=== PATIENT | female | born 1975 | race Caucasian/White ===

== ENCOUNTER 2019-08-28 08:04 | Emergency (ER) | payer OTHER, SELFPAY ==
[2019-08-28 08:19] VITALS: BP 145/85; PULSE 81; RESP 16; TEMP 36.7; O2SAT 100
--- NOTE | 2019-08-28 08:20 | ED.GENADULT ---
HPI - General Adult General Chief complaint: Upper Respiratory Infection Stated complaint: cough head and chest cold Time Seen by Provider: 08/28/19 08:25 Source: patient and RN notes reviewed Mode of arrival: ambulatory Limitations: no limitations History of Present Illness HPI narrative: 44-year-old female presents with complains of upper respiratory infection symptoms, low-grade fever, sore throat, and dry cough for 7 days. Tylenol Sinus without relief. Symptoms increase with head congestion and chest tenderness with coughing episodes. Constant dry cough. Rhinorrhea and nasal congestion. Denies sore throat at this time. No high fevers, drooling, neck or throat swelling. No chest pain, wheezing, or shortness of breath. No exacerbation factors. Denies nausea, vomiting, and abdominal pain. Tolerating liquids well. Remains active. Pamela denies being , LMP 1 month ago and is irregular. Some parts of this dictation were generated by voice recognition software and may contain typographical and/or grammatical inaccuracies. Related Data Home Medications Medication Instructions Recorded Confirmed lisinopril-hydrochlorothiazide 1 tablet PO DAILY 08/28/19 08/28/19 naltrexone 4.5 mg PO DAILY 08/28/19 08/28/19 rabeprazole 20 mg PO DAILY 08/28/19 08/28/19 ropinirole 0.5 mg PO DAILY 08/28/19 08/28/19 Allergies Allergy/AdvReac Type Severity Reaction Status Date / Time tramadol AdvReac Unknown Nausea and Verified 08/28/19 08:27 Vomiting Review of Systems Review of Systems: Narrative: CONSTITUTIONAL: Complains of low-grade fever. Denies chills, sweats. EYES: Denies visual changes, redness, discharge. ENT: Complains of rhinorrhea, congestion. Denies sore throat, otalgia. CARDIOVASCULAR: Denies chest pain, palpitations, edema. RESPIRATORY: Denies dyspnea, wheezing. Complains of dry cough. GASTROINTESTINAL: Denies abdominal pain, nausea, vomiting, diarrhea. GENITOURINARY: Denies dysuria, hematuria, abnormal discharge. SKIN: Denies rash or itching. MUSCULOSKELETAL: Denies acute back pain, joint pain, or myalgia. Complains of diffuse chest wall tenderness. NEUROLOGIC: Denies numbness or focal weakness. PSYCHIATRIC: Denies anxiety or depression. All systems reviewed & are unremarkable except as noted in HPI and below. [facility] Past Medical History Medical History (Updated 08/28/19 @ 09:22 by MANDO Cintron) Acid reflux Carpal tunnel syndrome, bilateral Hypertension Lyme disease Plantar fasciitis of left foot Restless leg syndrome Surgical History Surgical History (Updated 08/28/19 @ 09:20 by MANDO Cintron) History of carpal tunnel surgery Bilateral History of toe surgery Right great toe Family History Family History Mother Hypertension Family history of elevated blood lipids Family history of coronary artery disease Patient's mother is Family history of lung cancer, Onset Age: 62 Father Hypertension Family history of elevated blood lipids Cerebrovascular accident, Onset Age: 55 Patient's father is Family history of alcoholism Sibling Hypertension Grandparent Diabetes mellitus Social History Social History Smoking status: Never smoker Second hand tobacco smoke exposure: No Smoking end date: 07/20/89 Alcohol intake: never Comments At time of signature, agree with nurse past medical, surgical, social, and family history. There is no relevant family history pertinent to the presenting complaint. Exam Narrative: Exam Narrative: GENERAL: This is a well-nourished, well-developed patient, in no apparent distress. Talks in full sentences and ambulates with steady gait without dyspnea. HEAD: normocephalic, atraumatic. EYES: PERRL. Sclera clear/white. Vision is grossly intact. EARS: E
== END 2019-08-28 08:38 | disposition home or self-care (01) ==
PROVIDERS: Emergency Provider Nurse Practitioner Family; PCP Family Medicine
DX: J40 Bronchitis, not specified as acute or chronic (principal); M94.0 Chondrocostal junction syndrome [Tietze]
CPT/HCPCS: 99213; G0463

== ENCOUNTER 2021-04-06 15:27 | Emergency (ER) | payer OTHER, SELFPAY ==
--- NOTE | ~2021-04-06 | XR_ITS ---
XR chest 2V DATE: 04/06/2021 15:53 INDICATION: Cough. Tachycardia. Post Covid. TECHNIQUE: 2 views COMPARISON: 10/23/2015 chest FINDINGS: Normal heart size. No hilar or mediastinal enlargement. No pulmonary infiltrate or consolidation, pleural effusion or pulmonary vascular congestion or pneumo thorax. IMPRESSION: No active cardiopulmonary disease Reviewed, dictated and finalized at location A.
[2021-04-06 15:32] VITALS: BP 158/85; PULSE 120; RESP 20; TEMP 37.1; O2SAT 100
--- NOTE | 2021-04-06 15:37 | ED.GENADULT ---
HPI - General Adult General Chief complaint: Upper Respiratory Infection Stated complaint: fever,rapid heart beat Time Seen by Provider: 04/06/21 15:37 Source: patient Mode of arrival: ambulatory Limitations: no limitations History of Present Illness HPI narrative: 46-year-old female patient presents to the [facility] with complaints of heart palpitations, shortness of breath. Patient was diagnosed with Covid after starting to have symptoms on March 25. Patient states she was not vaccinated. Patient states she did see her homeopathic doctor which did prescribe her a Medrol Dosepak and ivermectin for her symptoms. Patient states she is finished the Medrol Dosepak is still on the ivermectin as well as supplements and vitamins. Patient states she thought she was getting better however she last had a fever on April 03. Patient states she was cleared by the health department to go back to work on Thursday but states she still noticing that she is having some congestion, cough and now has noticed increase in her heart rate anywhere from the 120s to 130s. Patient states she notices that she is got some shortness of breath on exertion. Related Data Home Medications Medication Instructions Recorded Confirmed lisinopril-hydrochlorothiazide 1 tablet PO DAILY 08/28/19 04/30/20 rabeprazole 20 mg tablet,delayed 20 mg PO DAILY 04/27/20 04/30/20 release ascorbic acid (vitamin C) 1 g PO DAILY 04/06/21 04/06/21 cyanocobalamin (vitamin B-12) IM MONTHLY 04/06/21 ropinirole 0.5 mg PO DAILY 04/06/21 04/06/21 Allergies Allergy/AdvReac Type Severity Reaction Status Date / Time Sulfa (Sulfonamide AdvReac Mild Nausea and Verified 04/06/21 15:51 Antibiotics) Vomiting tramadol AdvReac Unknown Nausea and Verified 04/06/21 15:50 Vomiting Review of Systems Review of Systems: CONSTITUTIONAL: Denies fever, chills, or sweats. EYES: Denies visual changes, redness, or discharge. ENT: Denies rhinorrhea, positive congestion, denies sore throat, or otalgia. CARDIOVASCULAR: Denies chest pain, positive palpitations, denies edema. RESPIRATORY: Positive cough with dyspnea. GASTROINTESTINAL: Denies abdominal pain, nausea, vomiting, or diarrhea. GENITOURINARY: Denies dysuria or hematuria. SKIN: Denies rash or itching. MUSCULOSKELETAL: Denies back pain, joint pain, or myalgia. NEUROLOGIC: Denies headache, numbness, or weakness. PSYCHIATRIC: Denies anxiety or depression. [facility] Past Medical History Medical History (Updated 04/06/21 @ 16:39 by MANDO Castro) Acid reflux Carpal tunnel syndrome, bilateral COVID-19 virus infection Hypertension Lyme disease Plantar fasciitis of left foot Restless leg syndrome Surgical History Surgical History History of carpal tunnel surgery Bilateral History of toe surgery Right great toe Family History Family History Mother Hypertension Family history of elevated blood lipids Family history of coronary artery disease Patient's mother is Family history of lung cancer, Onset Age: 62 Father Hypertension Family history of elevated blood lipids Cerebrovascular accident, Onset Age: 55 Patient's father is Family history of alcoholism Sibling Hypertension Grandparent Diabetes mellitus Social History Social History Smoking status: Former smoker (quit 30 years ago, smoked for 1 year in teens) Second hand tobacco smoke exposure: No Smoking end date: 07/20/89 Alcohol intake: never Substance use: never Substance use type: does not use Additional occupation/education comments: post office Gender identity (if verbalized by the patient): Female Sexual Orientation (if Verbalized by the Patient): Straight or Heterosexual Spiritual care concerns: No Agree to bl
--- NOTE | 2021-04-06 16:02 | ECG_ITS ---
Measurements Intervals [place] Rate: 109 P: 62 IA: 140 QRS: 64 QRSD: 88 T: 40 QT: 311 QTc: 419 Interpretive Statements SINUS TACHYCARDIA ABNORMAL ECG Electronically Signed On 04-07-2021 7:01:24 CDT by Colten Caraballo D.O.
== END 2021-04-06 16:35 | disposition short-term general hospital (02) ==
PROVIDERS: Emergency Provider Nurse Practitioner Family; PCP Family Medicine
DX: R00.2 Palpitations (principal); R06.02 Shortness of breath; I10 Essential (primary) hypertension; Z87.891 Personal history of nicotine dependence
CPT/HCPCS: 71046; 93005; 99213; G0463

== ENCOUNTER 2021-08-29 08:22 | Emergency (ER) | payer OTHER, SELFPAY ==
--- NOTE | 2021-08-29 08:27 | ED.SKABFB ---
HPI - Skin/Abscess/Foreign Bdy General Chief complaint: Skin/Abscess/Foreign Body Stated complaint: red behind right knee Time Seen by Provider: 08/29/21 08:33 Source: patient and RN notes reviewed History of Present Illness HPI narrative: Patient is a 46-year-old female who presents the urgent care with complaints of pain behind her right knee. Patient states that she has been wearing high boots to work and is unable to put the seat back in her truck and believes that she may have pulled something in her leg. Patient noticed a couple days ago that she now has a rash on her upper leg. Denies of any history of blood clot, shortness of breath or chest pain. Patient is not taking anything [id number] for her pain. No other acute complaints. No acute distress noted. Patient read the plan of care. Some parts of this dictation were generated by voice recognition software and may contain typographical and/or grammatical inaccuracies. Related Data Home Medications Medication Instructions Recorded Confirmed lisinopril-hydrochlorothiazide 1 tablet PO DAILY 08/28/19 08/29/21 rabeprazole 20 mg tablet,delayed 20 mg PO DAILY 04/27/20 08/29/21 release ascorbic acid (vitamin C) 1 g PO DAILY 04/06/21 08/29/21 cyanocobalamin (vitamin B-12) 1,000 mcg IM MONTHLY 04/06/21 08/29/21 prednisone 20 mg PO DAILY 08/29/21 08/29/21 Allergies Allergy/AdvReac Type Severity Reaction Status Date / Time Sulfa (Sulfonamide AdvReac Mild Nausea and Verified 08/29/21 08:33 Antibiotics) Vomiting tramadol AdvReac Unknown Nausea and Verified 08/29/21 08:33 Vomiting Review of Systems Review of Systems: CONSTITUTIONAL: Denies fever, chills, or sweats. EYES: Denies visual changes, redness, or discharge. ENT: Denies rhinorrhea, congestion, sore throat, or otalgia. CARDIOVASCULAR: Denies chest pain, palpitations, or edema. RESPIRATORY: Denies cough or dyspnea. GASTROINTESTINAL: Denies abdominal pain, nausea, vomiting, or diarrhea. GENITOURINARY: Denies dysuria or hematuria. SKIN: Reports of a rash behind the right knee MUSCULOSKELETAL: Reports of pain behind the right knee NEUROLOGIC: Denies headache, numbness, or weakness. All other systems reviewed are negative, except as documented in HPI. [facility] Past Medical History Medical History (Updated 08/29/21 @ 08:44 by MANDO Starks) Acid reflux Carpal tunnel syndrome, bilateral COVID-19 virus infection Hypertension Lyme disease Plantar fasciitis of left foot Restless leg syndrome Surgical History Surgical History History of carpal tunnel surgery Bilateral History of toe surgery Right great toe Family History Family History Mother Hypertension Family history of elevated blood lipids Family history of coronary artery disease Patient's mother is Family history of lung cancer, Onset Age: 62 Father Hypertension Family history of elevated blood lipids Cerebrovascular accident, Onset Age: 55 Patient's father is Family history of alcoholism Sibling Hypertension Grandparent Diabetes mellitus Social History Social History Smoking status: Former smoker (quit 30 years ago, smoked for 1 year in teens) Second hand tobacco smoke exposure: No Smoking end date: 07/20/89 Alcohol intake: never Substance use: never Substance use type: does not use Additional occupation/education comments: post office Gender identity (if verbalized by the patient): Female Sexual Orientation (if Verbalized by the Patient): Straight or Heterosexual Spiritual care concerns: No Agree to blood products: Yes Comments At the time of my signature, I reviewed and agree with the nursing past medical, surgical, social, and family history. There is no relevant fami
[2021-08-29 08:28] VITALS: BP 154/80; PULSE 84; RESP 20; TEMP 36.3; O2SAT 100
== END 2021-08-29 08:50 | disposition home or self-care (01) ==
PROVIDERS: Emergency Provider Nurse Practitioner Family; PCP Family Medicine
DX: T14.8XXA Other injury of unspecified body region, initial encounter (principal); X58.XXXA Exposure to other specified factors, initial encounter; B36.9 Superficial mycosis, unspecified; Z87.891 Personal history of nicotine dependence; K21.9 Gastro-esophageal reflux disease without esophagitis; I10 Essential (primary) hypertension; G25.81 Restless legs syndrome; Z86.16 Personal history of COVID-19
CPT/HCPCS: 99213; G0463

== ENCOUNTER 2022-06-04 12:28 | Emergency (ER) | payer OTHER, SELFPAY ==
--- NOTE | ~2022-06-04 | XR_ITS ---
EXAMINATION: XR knee RT min 4V DATE: 06/04/2022 13:14 INDICATION: Right knee pain. TECHNIQUE: 4 views of right knee were obtained. COMPARISON: None. FINDINGS: Bone alignment is normal. No fracture. There is mild tricompartmental osteoarthritis. There is a small knee joint effusion with loose bodies in the suprapatellar bursa. IMPRESSION: 1. Mild right knee osteoarthritis. 2. Small right knee joint effusion with loose bodies. Reviewed, dictated and finalized at location A. [employer] DEVELOPMENT TECHNICIAN
--- NOTE | ~2022-06-04 | XR_ITS ---
EXAMINATION: XR forearm RT 2V DATE: 06/04/2022 13:14 INDICATION: Right forearm pain. Fall. TECHNIQUE: 2 views of right forearm were obtained. COMPARISON: None. FINDINGS: Bone alignment is normal. No fracture. Joint spaces are normal. No elbow joint effusion. IMPRESSION: 1. Normal right forearm. Reviewed, dictated and finalized at location A. PAINTER IMPRESSION: 1. Normal right forearm.
[2022-06-04 12:38] VITALS: BP 144/93; PULSE 81; RESP 22; TEMP 36.4; O2SAT 100
--- NOTE | 2022-06-04 13:17 | ED.FALL ---
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 Patient reports she walked into a building which has 2 separate sliding glass doors and wind knocked something off of glass doors onto floor and she slipped on it landing on her right knee and outstretched her right hand and forearm to break her fall.Patient reports pain to her anterior right knee and to right wrist area with some generalized soreness also stated to her lower back, right hip, right shoulder, upper chest, right forearm and hand she rates as 2/10. Patient reports that she would like to go back to work today and also get a muscle relaxer so she can work the weekend. MD complaint: fall Onset (ago): hour(s) (2 hours prior to arrival) Fall from: standing Place fall occurred: other (while delivering mail at assistive living residence) Loss of consciousness: none Symptoms prior to fall: none Severity scale (1-10): 5 (right knee, 2 right wrist and forarm) Associated symptoms (after fall): other (pain right knee,right wrist and forearm) Related Data Home Medications Medication Instructions Recorded Confirmed lisinopril 20 1 tablet PO DAILY 08/28/19 06/04/22 mg-hydrochlorothiazide 25 mg tablet rabeprazole 20 mg tablet,delayed 20 mg PO DAILY 04/27/20 06/04/22 release ascorbic acid (vitamin C) 1,000 mg 1 g PO DAILY 04/06/21 06/04/22 tablet cyanocobalamin (vitamin B-12) 1,000 mcg IM MONTHLY 04/06/21 06/04/22 1,000 mcg/mL injection solution prednisone 20 mg tablet 20 mg PO DAILY 08/29/21 06/04/22 golimumab 12.5 mg/mL intravenous See Rx Instructions .Route .COMPLEX 06/04/22 06/04/22 solution (Simponi ARIA) Allergies Allergy/AdvReac Type Severity Reaction Status Date / Time Sulfa (Sulfonamide AdvReac Mild Nausea and Verified 06/04/22 12:37 Antibiotics) Vomiting tramadol AdvReac Unknown Nausea and Verified 06/04/22 12:37 Vomiting Review of Systems Review of Systems: CONSTITUTIONAL: Denies fever, chills, or sweats. EYES: Denies visual changes, redness, or discharge. ENT: Denies rhinorrhea, congestion, sore throat, or otalgia. CARDIOVASCULAR: Denies chest pain, palpitations, or edema. RESPIRATORY: Denies cough or dyspnea. GASTROINTESTINAL: Denies abdominal pain, nausea, vomiting, or diarrhea. GENITOURINARY: Denies dysuria or hematuria. SKIN: Denies rash or itching. MUSCULOSKELETAL: Denies back pain, positive for pain to right knee joint,right wrist forearm or myalgia.some soreness to lower back, right hip, right shoulder, upper chest,right hand and forearm NEUROLOGIC: Denies headache, numbness, or weakness. PSYCHIATRIC: Denies anxiety or depression. All systems reviewed & are unremarkable except as noted in HPI and below PMFSH Past Medical History Medical History (Updated 06/09/22 @ 10:01 by Karley East NP) Acid reflux Carpal tunnel syndrome, bilateral COVID-19 virus infection Hypertension Lyme disease Plantar fasciitis of left foot Restless leg syndrome Rheumatoid arthritis Surgical History Surgical History History of carpal tunnel surgery Bilateral History of toe surgery Right great toe Family History Family History Mother Hypertension Family history of elevated blood lipids Family history of coronary artery disease Patient's mother is Family history of lung cancer, Onset Age: 62 Father Hypertension Family history of elevated blood lipids Cerebrovascular accident, Onset Age: 55 Patient's f
== END 2022-06-04 14:20 | disposition home or self-care (01) ==
PROVIDERS: Emergency Provider Registered Nurse; PCP Family Medicine
DX: M25.461 Effusion, right knee (principal); M23.41 Loose body in knee, right knee; K21.9 Gastro-esophageal reflux disease without esophagitis; I10 Essential (primary) hypertension; G25.81 Restless legs syndrome; Z86.16 Personal history of COVID-19; Z87.891 Personal history of nicotine dependence
CPT/HCPCS: 73090; 73564; 99214; G0463

== ENCOUNTER 2023-11-21 08:04 | Emergency (ER) | payer OTHER, SELFPAY ==
[2023-11-21 08:15] VITALS: BP 128/63; PULSE 103; RESP 16; TEMP 36.6; O2SAT 100
--- NOTE | 2023-11-21 08:15 | ED.URI ---
HPI - URI/Sore Throat General Chief Complaint: Upper Respiratory Infection Stated Complaint: cough/chest congestion/head Time Seen by Provider: 11/21/23 08:15 Source: patient, RN notes reviewed and old records reviewed Mode of arrival: ambulatory Limitations: no limitations History of Present Illness HPI Narrative: 48 year old female who presents to express care with continued cough, chest and sinus congestion with expectoration of yellow tinged mucous has had low grade temperature highest noted 99.5F. Patient reports that she did tele visit and received Antibiotic and also inhaler and Medrol dose pack on the but continues with symptoms. Patient reports that cough is frequent and is deep and productive denies any acute shortness of breath but doesn't feel she is getting better despite use of inhaler and 6 days of Augmentin and has finished Medrol and use of Mucinex. MD elicited complaint: cough (harsh), rhinorrhea, nasal congestion and other (productive cough ) Onset (ago): week(s) (2weeks) Severity: moderate Able to tolerate fluids by mouth: Yes Treatments prior to arrival: antibiotics and other (Mucinex, inhaler, Medrol dose pack completed) Related Data Home Medications Medication Instructions Recorded Confirmed lisinopril 20 1 tablet PO DAILY 08/28/19 06/03/23 mg-hydrochlorothiazide 25 mg tablet rabeprazole 20 mg tablet,delayed 20 mg PO DAILY 04/27/20 06/03/23 release ascorbic acid (vitamin C) 1,000 mg 1 g PO DAILY 04/06/21 06/03/23 tablet cyanocobalamin (vitamin B-12) 1,000 mcg IM MONTHLY 04/06/21 06/03/23 1,000 mcg/mL injection solution tocilizumab 200 mg/10 mL (20 IV Q28D 06/03/23 06/03/23 mg/mL) intravenous solution (Actemra) Allergies Allergy/AdvReac Type Severity Reaction Status Date / Time Sulfa (Sulfonamide AdvReac Mild Nausea and Verified 06/03/23 09:00 Antibiotics) Vomiting tramadol AdvReac Unknown Nausea and Verified 06/03/23 09:00 Vomiting Review of Systems Review of Systems: CONSTITUTIONAL: Reports malaise, chills, sweats, low grade fever. EYES: Denies visual changes, redness, or discharge. ENT: Reports rhinorrhea, congestion, sinus pain, otalgia and no sore throat. CARDIOVASCULAR: Denies chest pain, palpitations, or edema. RESPIRATORY: Reports productive cough.? Denies dyspnea. GASTROINTESTINAL: Denies abdominal pain, nausea, vomiting, diarrhea SKIN: Denies rash or itching. MUSCULOSKELETAL: Denies myalgia. NEUROLOGIC: Reports headache. All systems reviewed & are unremarkable except as noted in HPI and below PMFSH Past Medical History Medical History Acid reflux Carpal tunnel syndrome, bilateral COVID-19 virus infection Hypertension Lyme disease Plantar fasciitis of left foot Restless leg syndrome Rheumatoid arthritis Surgical History Surgical History History of carpal tunnel surgery Bilateral History of toe surgery Right great toe Family History Family History Mother Hypertension Family history of elevated blood lipids Family history of coronary artery disease Patient's mother is Family history of lung cancer, Onset Age: 62 Father Hypertension Family history of elevated blood lipids Cerebrovascular accident, Onset Age: 55 Patient's father is Family history of alcoholism Sibling Hypertension Grandparent Diabetes mellitus Social History Social History Smoking status: Former smoker (quit 30 years ago, smoked for 1 year in teens) Second hand tobacco smoke exposure: No Smoking end date: 07/20/89 Alcohol intake: never Substance use: never Substance use type: does not use Living arrangements: with family Occupation/Education: occupation Add
== END 2023-11-21 08:37 | disposition home or self-care (01) ==
PROVIDERS: Emergency Provider Registered Nurse; PCP Family Medicine
DX: J40 Bronchitis, not specified as acute or chronic (principal); R05.1 Acute cough; Z87.891 Personal history of nicotine dependence; K21.9 Gastro-esophageal reflux disease without esophagitis; I10 Essential (primary) hypertension; G25.81 Restless legs syndrome; M06.9 Rheumatoid arthritis, unspecified; Z86.16 Personal history of COVID-19
CPT/HCPCS: 99213; G0463

== ENCOUNTER 2024-09-26 07:58 | Outpatient (CLI) | payer OTHER, SELFPAY ==
--- NOTE | 2024-10-04 15:16 | P.SLEEP_ITS ---
Sleep Study - Home Unattended Date of Study: 09/26/24 Ordering Provider: Charly Jurado APRN Interpreting Provider: Alee Riley MD Home Sleep Study Type: Watch PAT Height: 1.6 m Weight: 128.367 kg Body Mass Index: 50.1 Neck Circumference (inches): 14.5 [place]: 13 Reason for Sleep Study Hypersomnolence * 06/28/2020; PSG @[facility]; no obstructive sleep apnea, AHI 0.3, adequate sleep efficiency, short REM latency, minimum saturation 90.7%, Sleep History Pamela Hinton is a 49-year-old female with loud snoring. She has hypertension, restless legs syndrome, rheumatoid arthritis, and a history of Lyme disease. Her RLS symptoms are controlled taking 1 mg of ropinirole before bed, and 0.5 mg at noon if she needs it for her RLS symptoms. She wakes with a morning headache and has a dry mouth on waking. She wakes twice at night to urinate. She has difficulty falling asleep and staying asleep. She wakes up before her intended wake time. She has excessive daytime sleepiness, she is on refreshed on waking and she does on occasion have drowsy driving. She kicks her legs excessively and has restless feelings in her legs at night. She has an urge to move her legs, it is worse with her legs trying to stay still and it gets better with activities. This is worse in the evening or night. This is concerning to her. On work days her normal bedtime is 7:00 p.m. falling asleep within 30 minutes spending 9 hours in bed but only sleeping 6-1/2 hours. On days off her bedtime is 9:00 p.m., she takes an hour to fall asleep, she spent 7 hours in bed, 5 hours of sleep. If she takes a nap it is not at all restorative. She does not take any planned naps. Habits: Tobacco: Former smoker Caffeine: 1-2 cups daily Alcohol: None Recreational substances: None PMFSH Past Medical History Medical History Rheumatoid arthritis COVID-19 virus infection Plantar fasciitis of left foot Carpal tunnel syndrome, bilateral Lyme disease Acid reflux Restless leg syndrome Hypertension Surgical History Surgical History Status post right foot surgery History of toe surgery Right great toe History of carpal tunnel surgery Bilateral Family History Family History Mother Hypertension Family history of elevated blood lipids Family history of coronary artery disease Patient's mother is Family history of lung cancer, Onset Age: 62 Father Hypertension Family history of elevated blood lipids Cerebrovascular accident, Onset Age: 55 Patient's father is Family history of alcoholism Sibling Hypertension Grandparent Diabetes mellitus Social History Social History Smoking status: Former smoker (quit 30 years ago, smoked for 1 year in teens) Second hand tobacco smoke exposure: No Smoking end date: 07/20/89 Alcohol intake: never Substance use: never Substance use type: does not use Living arrangements: with family Occupation/Education: occupation Additional occupation/education comments: post office Gender identity (if verbalized by the patient): Female Sexual Orientation (if Verbalized by the Patient): Straight or Heterosexual Spiritual care concerns: No Agree to blood products: Yes Medications Home Medications ?Medication ?Instructions ?Recorded ?Confirmed ?Type lisinopril 20 1 tablet PO DAILY 08/28/19 06/01/24 History mg-hydrochlorothiazide 25 mg tablet rabeprazole 20 mg tablet,delayed 20 mg PO DAILY 04/27/20 06/01/24 History release cyanocobalamin (vitamin B-12) 1,000 mcg IM MONTHLY 04/06/21 06/01/24 History 1,000 mcg/mL injection solution infliximab 100 mg intravenous IV 06/01/24 History solution (Remicade) tirzepatide (weight loss) 10 10 mg subcut WEEKLY 06/01/24 History mg/0.5 mL subcutaneous pen injector (Zepbound) ropinirole 1 mg tablet 1.5 mg (1.5 x 1 mg) PO DIRECTED 07/01/24 Rx 90 days #135 tabs Sleep Procedure The sleep study was completed using WatchPAT a technically adequate device with seven channels: peripheral arterial tone, actigraphy, body position, snore, respiratory movement, pulse oximetry, sleep staging, and heart rate. Prior to using the device, the patient received verbal and written instructions for its application and was provided with the help desk phone number for additional telephonic instruction with 24-hour availability of qualified personnel to answer questions. Sleep Architecture The total recording time is 7 hours 37 minutes. The total sleep time is 6 hours 21 minutes. Sleep latency is 6 minutes. REM latency is 97 minutes. The patient had 19 episodes of waking. Sleep architecture shows 19.9% deep sleep, 52% light sleep, and 28.1% stage REM. Sleep efficiency was 83%. The patient spent 381.5 minutes, 99 % of total sleep time in the supine position. Respiratory Analysis The overall AHI is 41 using a 3% criteria, and the apnea hypopnea index is 25 using a 4% criteria. The central AHI is1.3, normal. The REM AHI was 45.6. There was no evidence of [place] respirations. Oximetry Data The oxygen desaturation index is 28. The mean saturation is 93%, the lowest saturation is 71%, and the patient spent 23.1 minutes, 6% of the sleep time, below 88%. Snoring Profile Snoring was present, average intensity 41 dB. The patient snored above 45 dB for 16.2 minutes, 4.2% of the sleep time. Cardiac Profile The average pulse is 77 beats per minute, the lowest pulse is 52 beats per minute, and the highest pulse is 140 beats per minute. The cardiac rhythm analysis in sleep did not detect atrial fibrillation. Assessment and Plan Assessment and Plan (1) Obstructive sleep apnea: Code(s): G47.33 - Obstructive sleep apnea (adult) (pediatric) Status: Acute Assessment and Plan: This home sleep test using WatchPat on 09/26/2024 shows severe obstructive sleep apnea, the apnea-hypopnea index is 41, 23.1 minutes spent below 88% which was 6% of the study, desaturation to 71% and loud snoring. The centrla AHI was 1.3, normal range. I recommend that this patient be prescribed Resmed AirSense 11 AutoPAP 5-15 cm H2O, CPAP mask/filters/tubing and humidifier chamber. This should be used with all episodes of sleep. Compliance should be reviewed within 31-90 days of starting therapy for usage greater than 4 hours per night greater than 70% of the nights. The patient should be asked about symptoms such as excessive daytime sleepiness, quality of sleep, decreased nocturia, increased mental functioning such as memory, mood, and concentration. If she does not respond to auto PAP, patient should have a dedicated full night CPAP titration in the sleep lab with a sleep aid available, if needed, to initiate and maintain sleep during the titration. Consider Ambien 5 mg to 10 mg or Lunesta 2 mg to 3 mg. Patient should not nap on the day of the study. BMI is 50. Weight management is advised. Clinical data suggests that weight loss of 10% can reduce the severity of respiratory events and snoring and improv e AHI by as much as 25%. (2) Restless leg syndrome: Code(s): G25.81 - Restless legs syndrome Status: Acute Assessment and Plan: This is an existing diagnosis. She is on ropinirole 1 mg Hs and 0.5 mg midday for management. Data The data obtained during this sleep study is adequate for interpretation. Certification This sleep study has been reviewed by a board certified sleep medicine phys mayra.
[2024-10-04 15:55] VITALS: BMI 50.1
== END 2024-09-27 07:56 | disposition home or self-care (01) ==
LOC: ANHCSM 07:59
PROVIDERS: PCP Family Medicine; Visit Provider Nurse Practitioner Family
DX: G47.33 Obstructive sleep apnea (adult) (pediatric) (principal); G25.81 Restless legs syndrome; R06.83 Snoring; I10 Essential (primary) hypertension; Z68.43 Body mass index [BMI] 50.0-59.9, adult
CPT/HCPCS: 95800